=== PATIENT | male | born 1975 | race Caucasian/White ===

== ENCOUNTER → 2021-03-01 03:09 | Outpatient (CLI) | payer OTHER, SELFPAY ==
[2021-03-01 18:29] LABS: SARS-CoV-2 RNA PCR Negative
== END ==
PROVIDERS: PCP Physician Assistant; Visit Provider Family Medicine
DX: U07.1 COVID-19 (principal)
CPT/HCPCS: C9803; U0003; U0005

== ENCOUNTER 2021-03-03 07:38 | Outpatient (CLI) | payer OTHER, SELFPAY ==
--- NOTE | 2021-03-27 12:03 | WPDSLEEPSTUD ---
Sleep Study Date of Study: 03/03/21 <Nicole Allen DO - Last Filed: 03/28/21 11:04> Ordering Provider: Robles GarciaADELINA <Nicole Allen DO - Last Filed: 03/28/21 11:04> Interpreting Physician: Nicole Allen DO <Nicole Allen, DO - Last Filed: 03/28/21 11:04> Sleep Study Type: Polysomnogram <Nicole Allen DO - Last Filed: 03/28/21 11:04> Height: 1.78 m <Nicole Allen DO - Last Filed: 03/28/21 11:04> Weight: 148.325 kg <Nicole Allen DO - Last Filed: 03/28/21 11:04> Body Mass Index: 46.9 <Nicole Allen DO - Last Filed: 03/28/21 11:04> [place]: 9 <Nicole Allen DO - Last Filed: 03/28/21 11:04> Reason for Sleep Study Patient's states that he has witnessed apneas. <Nicole Allen DO - Last Filed: 03/28/21 11:04> Sleep History The patient is a 45-year-old male with migraines,GERD, obesity and previously diagnosed ART that had a sleep study ordered by his primary care due to the patient needing new supplies. The patient is currently using CPAP every night. the patient states that he rarely awakens from sleep short of breath. He occasionally awakens at night with heartburn, belching or cough. He constantly snores loud enough that others complain. He occasionally has trouble sleeping when he has a cold. He denies waking up gasping for air throughout the night. He frequently has breathing problems at night observed by others. He occasionally sweats excessively at night. He rarely has heart palpitations or irregular heartbeats during the night. He rarely falls asleep during the day and rarely falls asleep while driving. He denies sleep paralysis and cataplexy. He occasionally has trouble at work due to sleepiness. He rarely experiences vivid dream like scenes upon awakening or falling asleep. He rarely has nightmares. He occasionally has thoughts racing through his mind. He rarely feels sad or depressed. He occasionally has anxiety. He rarely notices parts of his body jerk. He occasionally kicks during the night. He occasionally has crawling aching feelings in his legs as well as leg pain during the night. He denies grinding his teeth during sleep and awakening with morning job pain. He is frequently bothered by pain during the day and occasionally awakened by pain during the night. He occasionally wakes up feeling stiff in the morning with sore and achy more muscles. He occasionally wakes up with pain in the neck, spine and other joints. He goes to bed at 10:30 p.m. on weekdays and 11:30 p.m. on weekends. It takes him between 10 and 20 minutes to fall asleep. He wakes up maybe once throughout the night to use the restroom. He can fall back asleep within a few minutes. He wakes up at 6:30 a.m. on the weekdays and 8:00 a.m. on the weekends. He gets between 6 and 7 hours of sleep per night. He will stay in bed for 30 minutes after awakening in the morning. He currently lives with his and 3 children. He does not consume any caffeinated beverages within 2 hours of bedtime. He does not engage in physical exercise before bedtime. He will watch television before falling asleep. He does not take naps during the afternoon or the evening. He currently drinks 2-3 caffeinated beverages per day. He denies tobacco, alcohol and recreational drug use. <Nicole Allen DO - Last Filed: 03/28/21 11:04> [facility] Past Medical History Medical History: Medical History ART (obstructive sleep apnea) <Nicole Allen DO - Last Filed: 03/28/21 11:04> Sleep Procedure This test was performed using the [employer] multiple channel system including EOG, EEG, submental EMG, EKG, nasal and oral airflow using thermistors and nasal pressure sensors, chest and abdominal belts for body position data, and pulse oximetry. Video monitoring was also p
[2021-03-28 10:59] VITALS: BMI 46.9
== END 2021-03-04 06:39 | disposition home or self-care (01) ==
LOC: ANHCSM 07:40
PROVIDERS: PCP Physician Assistant; Visit Provider Physician Assistant
DX: G47.33 Obstructive sleep apnea (adult) (pediatric) (principal)
CPT/HCPCS: 95810; 95811

== ENCOUNTER → 2021-10-30 15:16 | Outpatient (CLI) | payer OTHER, SELFPAY ==
--- NOTE | ~2021-10-30 | XR_ITS ---
EXAMINATION: XR chest 2V 10/30/2021 15:48 INDICATION: Subacute cough PROCEDURE: 2 view chest COMPARISON: No prior studies for comparison. FINDINGS: The lungs are clear. The cardiomediastinal silhouette is within normal limits. There are no pleural effusions. There is no pneumothorax suspected. IMPRESSION: 1: NO ACUTE CARDIOPULMONARY DISEASE. Reviewed, dictated and finalized at location B.
== END ==
PROVIDERS: PCP Physician Assistant; Visit Provider Physician Assistant
DX: R05.2 Subacute cough (principal)
CPT/HCPCS: 71046

== ENCOUNTER → 2023-01-19 07:27 | Outpatient (CLI) | payer OTHER, SELFPAY ==
--- NOTE | ~2023-01-19 | XR_ITS ---
EXAMINATION: XR chest 2V DATE: 01/19/2023 07:42 INDICATION: Cough TECHNIQUE: PA and lateral views of the chest are obtained. COMPARISON: 10/30/2021 FINDINGS: The lungs are free of acute opacities. No pleural effusion or pneumothorax. The cardiomedia stinal silhouette is normal. The visualized bones and soft tissues are unremarkable. IMPRESSION: 1. No acute cardiopulmonary abnormality. Reviewed, dictated and finalized at location F.
== END ==
PROVIDERS: PCP Physician Assistant; Visit Provider Physician Assistant
DX: R05.9 Cough, unspecified (principal)
CPT/HCPCS: 71046